=== PATIENT | male | born 1995 | race African-American/Black ===

== ENCOUNTER 2016-10-13 14:32 | Emergency (ER) | payer OTHER ==
[~2016-10-13] VITALS: Ht 165.1 cm; Wt 83.9 kg
[2016-10-13 14:43] VITALS: BP 126/74
--- NOTE | 2016-10-13 15:13 | PHYS DOC ---
Past Medical History Past Medical History: Other Additional Past Medical Histor: [facility] Past Surgical History: Other Additional Past Surgical Histo: left knee surgery, abd explor. wash out Alcohol Use: Occasionally Drug Use: None Adult General Chief Complaint Chief Complaint: ABSCESS HPI HPI Patient is a 21 year old male presents to the emergency department states that he has had a cyst on his right buttocks for the last few days. He states his been very hard and tender. He denies any drainage or discharge coming from the site. He states his last tetanus immunization was approximately one year ago. He denies fever, chills or any nausea vomiting. Review of Systems Review of Systems Constitutional: Denies fever or chills [] Eyes: Denies change in visual acuity, redness, or eye pain [] HENT: Denies nasal congestion or sore throat [] Respiratory: Denies cough or shortness of breath [] Cardiovascular: No additional information not addressed in HPI [] GI: Denies abdominal pain, nausea, vomiting, bloody stools or diarrhea [] : Denies dysuria or hematuria [] Musculoskeletal: Denies back pain or joint pain [] Integument: Denies rash or skin lesions. Complaint of abscess right buttocks Neurologic: Denies headache, focal weakness or sensory changes [] Endocrine: Denies polyuria or polydipsia [] Current Medications Current Medications Current Medications Medications (Trade) Dose Ordered Sig/Flor Start Time Stop Time Status Last Admin Dose Admin Lidocaine/Sodium Bicarbonate (Buffered Lidocaine 1%) 20 ml 1X ONCE 10/13/16 15:15 10/13/16 15:16 DC 10/13/16 15:17 20 ML Allergies Allergies Allergies Coded Allergies Type Severity Reaction Last Updated Verified No Known Drug Allergies 03/29/13 No Physical Exam Physical Exam Constitutional: Well developed, well nourished, no acute distress, non-toxic appearance. [] HENT: Normocephalic, atraumatic, bilateral external ears normal, oropharynx moist, no oral exudates, nose normal. [] Eyes: PERRLA, EOMI, conjunctiva normal, no discharge. [] Neck: Normal range of motion, no tenderness, supple, no stridor. [] Cardiovascular:Heart rate regular rhythm Lungs & Thorax: No respiratory distress noted Skin: Warm, dry, no erythema, no rash. Patient with a pustular area noted on the right buttocks area Back: No tenderness Extremities: No tenderness, no cyanosis, no clubbing, ROM intact, no edema. [] Neurologic: Alert and oriented X 3, normal motor function, normal sensory function, no focal deficits noted. [] Psychologic: Affect normal, judgement normal, mood normal. [] Current Patient Data Vital Signs Vital Signs Date Time Temp Pulse Resp B/P (MAP) Pulse Ox O2 Delivery O2 Flow Rate FiO2 10/13/16 14:43 98.2 77 18 96 Room Air 98.2 EKG EKG [] Radiology/Procedures Radiology/Procedures [] Course & Med Decision Making Course & Med Decision Making Pertinent Labs and Imaging studies reviewed. (See chart for details) Right buttocks site was cleaned with Betadine. 18-gauge needle was used to idalia open the site with thick yellow discharge noted. Band-Aid was placed over the site. Patient reports placed on Bactrim 1 tablet twice day for the next 10 days recommended warm moist soaks to the area times a day for 20 minutes at a time. Patient was recommended to follow-up the primary care physician or return back to emergency department in the next 3-5 days. Since symptoms to return to emergency department been provided. Patient agrees with discharge instructions treatment regimen and follow-up recommendations. Dragon Disclaimer Dragon Disclaimer This electronic medical record was generated, in whole or in part, using a voice recognition dictation system. Departure Departure Impression: Primary Impression: Abscess Disposition: 01 HOME, SELF-CARE Condition: STABLE Referrals: NO PCP (PCP) Patient Instructions: Abscess, [id number] Additional Instructions: Activity as tolerated Medication as prescribed Tylenol or Ibuprofen for pain Warm moist packs to the buttock 5 times a day for 20 minutes at a time Followup with primary care provider in 3-5 days Return to emergency department as needed for signs and symptoms that become worse. Scripts Sulfamethoxazole/Trimethoprim (BACTRIM DS TABLET) 1 Each Tablet 1 TAB PO BID, #20 TAB Prov: NIECY DRAKE APRN 10/13/16 NIECY DRAKE APRN Oct 13, 2016 15:13
[2016-10-13] MEDS ORDERED: LIDOCAINE 1% / SOD BICARB 8.4% 20 ML VIAL. IJ ONE (15:15)
[2016-10-13] MEDS ORDERED: SULF1TAB24 PO (15:34)
== END 2016-10-13 15:46 | disposition home or self-care (01) ==
LOC: ER 14:32
DX: L02.31 Cutaneous abscess of buttock (principal)
CPT/HCPCS: 10060; 99283-25

== ENCOUNTER 2019-03-13 07:34 | Emergency (ER) | payer OTHER ==
[~2019-03-13] VITALS: Ht 165.1 cm; Wt 79.4 kg
[~2019-03-13 07:34] MED LIST: SULF1TAB24 PO
[2019-03-13 07:40] VITALS: BP 108/60
[2019-03-13] MEDS ORDERED: SULF1TAB24 PO (08:09)
[2019-03-13] MEDS ORDERED: CEPH-264 PO (08:09)
[2019-03-13] MEDS ORDERED: HYDR-3164 PO (08:09)
--- NOTE | 2019-03-13 08:09 | PHYS DOC ---
Past Medical History Past Medical History: Other Additional Past Medical Histor: [facility] Past Surgical History: Other Additional Past Surgical Histo: left knee surgery, abd explor. wash out Alcohol Use: Occasionally Drug Use: None Adult General Chief Complaint Chief Complaint: ABSCESS HPI HPI Patient is a 23 year old male who presents with complaining of abscess. Patient states she had painful area in lower back since yesterday and had the same history of years ago with diagnosis of pilonidal abscess. Patient denies fever and chills, nausea and vomiting, constipation and diarrhea. Review of Systems Review of Systems Constitutional: Denies fever or chills [] Eyes: Denies change in visual acuity, redness, or eye pain [] HENT: Denies nasal congestion or sore throat [] Respiratory: Denies cough or shortness of breath [] Cardiovascular: No additional information not addressed in HPI [] GI: Denies abdominal pain, nausea, vomiting, bloody stools or diarrhea [] : Denies dysuria or hematuria [] Musculoskeletal: Denies back pain or joint pain [] Integument: Denies rash, reports skin lesions [] Neurologic: Denies headache, focal weakness or sensory changes [] Endocrine: Denies polyuria or polydipsia [] All other systems were reviewed and found to be within normal limits, except as documented in this note. Allergies Allergies Allergies Coded Allergies Type Severity Reaction Last Updated Verified No Known Drug Allergies 03/29/13 No Physical Exam Physical Exam Constitutional: Well developed, well nourished, mild distress, non-toxic appearance. [] HENT: Normocephalic, atraumatic. Eyes: PERRLA, EOMI, conjunctiva normal, no discharge. [] Neck: Normal range of motion, no tenderness, supple, no stridor. [] Cardiovascular:Heart rate regular rhythm, no murmur [] Lungs & Thorax: Bilateral breath sounds clear to auscultation [] Abdomen: Bowel sounds normal, soft, no tenderness, no masses, no pulsatile masses. [] Skin: Warm, dry, no erythema, no rash. Small area of erythema without abscess in the sacral area Back: No tenderness, no CVA tenderness. [] Extremities: No tenderness, no cyanosis, no clubbing, ROM intact, no edema. [] Neurologic: Alert and oriented X 3, no focal deficits noted. [] Psychologic: Affect normal, judgement normal, mood normal. [] Current Patient Data Vital Signs Vital Signs Date Time Temp Pulse Resp B/P (MAP) Pulse Ox O2 Delivery O2 Flow Rate FiO2 03/13/19 07:40 98.4 86 18 108/60 (76) 98 Room Air 98.4 EKG EKG [] Radiology/Procedures Radiology/Procedures [] Course & Med Decision Making Course & Med Decision Making Evaluation of patient in ER showed 23-year-old male patient presented to ER with cellulitis of pilonidal cyst. Plan of treatment was explained the patient and was advised to return to ER if not getting better in 48 hours. Dragon Disclaimer Dragon Disclaimer This electronic medical record was generated, in whole or in part, using a voice recognition dictation system. Departure Departure Impression: Primary Impression: Infected pilonidal cyst Disposition: HOME, SELF-CARE (at 0805) Condition: STABLE Referrals: NO PCP (PCP) BILLY ESCAMILLA MD Patient Instructions: Pilonidal Cyst Additional Instructions: Drink plenty of liquids Follow-up with your primary care physician in days Return to ER if not getting better in 48 hours Apply moist heat pad on the affected area Follow-up with surgeon for definitive treatment of pilonidal cyst Scripts Hydrocodone/Apap 5-325 (NORCO 5-325 TABLET) 1 Each Tablet 1 TAB PO PRN Q6HRS PRN for PAIN, #10 TAB 0 Refills Prov: JEFFERY HERRERA MD 03/13/19 Cephalexin (KEFLEX) 500 Mg Capsule 2 CAP PO Q12HR, #28 CAP Prov: JEFFERY HERRERA MD 03/13/19 Sulfamethoxazole/Trimethoprim (BACTRIM DS TABLET) 1 Each Tablet 1 TAB PO BID for infection, #14 TAB Prov: JEFFERY HERRERA MD 03/13/19 JEFFERY HERRERA MD Mar 13, 2019 08:09
== END 2019-03-13 08:15 | disposition home or self-care (01) ==
LOC: ER 07:34
DX: L05.01 Pilonidal cyst with abscess (principal)
CPT/HCPCS: 99283

== ENCOUNTER 2020-01-17 01:34 | Emergency (ER) | payer OTHER ==
[~2020-01-17] VITALS: Ht 175.3 cm; Wt 88.6 kg
[~2020-01-17 01:34] MED LIST changes: +CEPH-264 PO; +HYDR-3164 PO
[2020-01-17] MEDS ORDERED: HALOPERIDOL LACTATE 5 MG/ML VIAL. ONE (01:47)
[2020-01-17] MEDS ORDERED: MIDAZOLAM HCL/PF 5 MG/5 ML VIAL. ONE (01:54)
[2020-01-17] MEDS ORDERED: MIDAZOLAM HCL/PF 5 MG/5 ML VIAL. IM ONE ×2 (02:30)
[2020-01-17] MEDS ORDERED: HALOPERIDOL LACTATE 5 MG/ML VIAL. IVP ONE (02:30)
[2020-01-17] MEDS ORDERED: IV NORMAL SALINE 1000ML BAG 1,000 ML IV ONE ×2 (02:30)
[2020-01-17 02:39] LABS: BASO # 0.1 x10^3/uL (0.0-0.2); BASO % 1 % (0-3); EOS # 0.1 x10^3/uL (0.0-0.7); EOS % 1 % (0-3); HEMATOCRIT 39.3 % (39.0-53.0); HEMOGLOBIN 13.7 g/dL (13.0-17.5); LYMPH # 2.3 x10^3/uL (1.0-4.8); LYMPH % 22 % (24-48); MEAN CORPUSCULAR HEMOGLOBIN 29 pg (25-35); MEAN CORPUSCULAR HGB CONC 35 g/dL (31-37); MEAN CORPUSCULAR VOLUME 84 fL (79-100); MONO # 0.6 x10^3/uL (0.0-1.1); MONO % 6 % (0-9); NEUT # 7.3 x10^3/uL (1.8-7.7); NEUT % 70 % (31-73); PLATELET COUNT 186 x10^3/uL (140-400); RED BLOOD COUNT 4.66 x10^6/uL (4.30-5.70); RED CELL DISTRIBUTION WIDTH 12.7 % (11.5-14.5); WHITE BLOOD COUNT 10.5 x10^3/uL (4.0-11.0)
--- NOTE | 2020-01-17 03:02 | RAD ---
CT head without contrast. CT cervical spine without contrast. PQRS statement: CT scans at this facility use dose reduction including either automated exposure control, iterative reconstructions, and /or weight based radiation dosing via mA and kV modification when appropriate to reduce radiation dose to as low as reasonably achievable. HISTORY: Altered mental status. CT head findings: No intracranial hemorrhage, mass, hydrocephalus, extra-axial fluid collections or infarction. Fluid opacities left sphenoid sinus. Orbits, mastoids and bones are unremarkable. IMPRESSION: No acute intracranial CT abnormality. Left sphenoid sinus fluid likely sinusitis. CT cervical spine findings: Craniocervical junction intact. Cervical vertebral body height and alignment intact. No fracture of the cervical spine. Lung apices and paraspinal tissues are unremarkable. IMPRESSION: No acute osseous injury of the cervical spine. Electronically signed by: Jamison Schultz MD (01/17/2020 3:00 AM) [facility]
[2020-01-17 03:10] LABS: ALBUMIN 3.9 g/dL (3.4-5.0); ALBUMIN/GLOBULIN RATIO 1.4 (1.0-1.7); CALCIUM 8.5 mg/dL (8.5-10.1); CREATININE 1.3 mg/dL (0.7-1.3); GFR 80.7; TOTAL BILIRUBIN 0.3 mg/dL (0.2-1.0); TOTAL PROTEIN 6.6 g/dL (6.4-8.2)
[2020-01-17 03:17] LABS: POTASSIUM 2.8 mmol/L (3.5-5.1)
[2020-01-17] MEDS ORDERED: POTASSIUM CL 40MEQ IN 0.9%NACL 1,000 ML IV SCH (04:00)
--- NOTE | 2020-01-17 04:06 | PHYS DOC ---
Past Medical History Past Medical History: Other Additional Past Medical Histor: [facility] (YESY DE LA O DO) Past Surgical History: Other Additional Past Surgical Histo: left knee surgery, abd explor. 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 (YESY DE LA O DO) Review of Systems: Review of Systems: Review of systems unable to be obtained due to mental status (YESY DE LA O DO) Heart Score: Risk Factors: Risk Factors: DM, Current or recent (<one month) smoker, HTN, HLP, family history of CAD, obesity. Risk Scores: Score 0 - 3: 2.5% MACE over next 6 weeks - Discharge Home Score 4 - 6: 20.3% MACE over next 6 weeks - Admit for Clinical Observation Score 7 - 10: 72.7% MACE over next 6 weeks - Early Invasive Strategies (YESY DE LA O DO) Current Medications: Current Medications Medications (Trade) Dose Ordered Sig/Flor Start Time Stop Time Status Last Admin Dose Admin Haloperidol Lactate (Haldol Inj) 10 mg 1X ONCE 01/17/20 02:30 01/17/20 02:31 DC 01/17/20 02:39 5 MG Midazolam HCl (Versed) 5 mg STK-MED ONCE 01/17/20 01:54 01/17/20 01:54 DC Potassium Chloride/Sodium Chloride 1,000 ml @ 125 mls/hr Q8H 01/17/20 04:00 01/17/20 11:59 Sodium Chloride 1,000 ml @ 1,000 mls/hr 1X ONCE 01/17/20 02:30 01/17/20 03:29 DC 01/17/20 02:37 1,000 MLS/HR (YESY DE LA O DO) Allergies: Allergies: Allergies Coded Allergies Type Severity Reaction Last Updated Verified No Known Drug Allergies 03/29/13 No (YESY DE LA O DO) Physical Exam: PE: Constitutional: Nonverbal, diaphoretic, unable to verbally escalate, handcuffed HENT: oropharynx moist, no oral exudates, nose normal. [] No hemotympanum Eyes: PERRLA-3mm bl, EOMI, conjunctiva normal, no discharge. [] Mild 3 mm abrasion over right upper eyelid, some blood on distal r ear tip Neck: Normal range of motion, supple, no stridor. [] Cardiovascular:Heart rate regular rhythm, no murmur [] Lungs & Thorax: Bilateral breath sounds clear to auscultation [] Abdomen: Bowel sounds normal, soft, no tenderness, no masses, no pulsatile masses. [] Skin: Warm, dry, no erythema, no rash. [] Back: No tenderness, no CVA tenderness. [] Extremities: No tenderness, no cyanosis, no clubbing, ROM intact, no edema. [] Neurologic: normal motor function, normal sensory function, no focal deficits noted. [] Psychologic: Agitated and bizarre behavior (YESY DE LA O DO) Current Patient Data: Labs: Laboratory Tests Test 01/17/20 02:25 White Blood Count 10.5 x10^3/uL (4.0-11.0) Red Blood Count 4.66 x10^6/uL (4.30-5.70) Hemoglobin 13.7 g/dL (13.0-17.5) Hematocrit 39.3 % (39.0-53.0) Mean Corpuscular Volume 84 fL (79-100) Mean Corpuscular Hemoglobin 29 pg (25-35) Mean Corpuscular Hemoglobin Concent 35 g/dL (31-37) Red Cell Distribution Width 12.7 % (11.5-14.5) Platelet Count 186 x10^3/uL (140-400) Neutrophils (%) (Auto) 70 % (31-73) Lymphocytes (%) (Auto) 22 % (24-48) L Monocytes (%) (Auto) 6 % (0-9) Eosinophils (%) (Auto) 1 % (0-3) Basophils (%) (Auto) 1 % (0-3) Neutrophils # (Auto) 7.3 x10^3/uL (1.8-7.7) Lymphocytes # (Auto) 2.3 x10^3/uL (1.0-4.8) Monocytes # (Auto) 0.6 x10^3/uL (0.0-1.1) Eosinophils # (Auto) 0.1 x10^3/uL (0.0-0.7) Basophils # (Auto) 0.1 x10^3/uL (0.0-0.2) Sodium Level 140 mmol/L (136-145) Potassium Level 2.8 mmol/L (3.5-5.1) *L Chloride Level 102 mmol/L (98-107) Carbon Dioxide Level 26 mmol/L (21-32) Anion Gap 12 (6-14) Blood Urea Nitrogen 15 mg/dL (8-26) Creatinine 1.3 mg/dL (0.7-1.3) Estimated GFR (Cockcroft-Gault) 80.7 BUN/Creatinine Ratio 12 (6-20) Glucose Level 131 mg/dL (70-99) H Calcium Level 8.5 mg/dL (8.5-10.1) Total Bilirubin 0.3 mg/dL (0.2-1.0) Aspartate Amino Transferase (AST) 20 U/L (15-37) Alanine Aminotransferase (ALT) 16 U/L (16-63) Alkaline Phosphatase 57 U/L (46-116) Creatine Kinase 297 U/L (39-308) Total Protein 6.6 g/dL (6.4-8.2) Albumin 3.9 g/dL (3.4-5.0) Albumin/Globulin Ratio 1.4 (1.0-1.7) Ethyl Alcohol Level < 10 mg/dL (0-10) Laboratory Tests 01/17/20 02:25 Laboratory Tests 01/17/20 02:25 (YESY DE LA O DO) EKG: EKG: Sinus tachycardia at 115 bpm, no axis deviation, T wave inversion lead III, normal intervals, no ST elevations or ST depressions (EYSY DE LA O DO) Radiology/Procedures: Radiology/Procedures: IMAGING REPORT Signed PATIENT: CRYSTAL COOK ACCOUNT: [id number] : 1995 LOCATION: ER AGE: 24 SEX: M EXAM STATUS: PRE ER ORD. PHYSICIAN: YESY DE LA O DO REASON: ams PROCEDURE: CT HEAD AND CERVICAL SPINE WO CT head without contrast. CT cervical spine without contrast. PQRS statement: CT scans at this facility use dose reduction including either automated exposure control, iterative reconstructions, and /or weight based radiation dosing via mA and kV modification when appropriate to reduce radiation dose to as low as reasonably achievable. HISTORY: Altered mental status. CT head findings: No intracranial hemorrhage, mass, hydrocephalus, extra-axial fluid collections or infarction. Fluid opacities left sphenoid sinus. Orbits, mastoids and bones are unremarkable. IMPRESSION: No acute intracranial CT abnormality. Left sphenoid sinus fluid likely sinusitis. CT cervical spine findings: Craniocervical junction intact. Cervical vertebral body height and alignment intact. No fracture of the cervical spine. Lung apices and paraspinal tissues are unremarkable. IMPRESSION: No acute osseous injury of the cervical spine. Electronically signed by: Reyes Schultz MD (01/17/2020 3:00 AM) [facility] DICTATED and SIGNED BY: REYES SCHULTZ MD DATE: 01/17/20299 IMAGING REPORT Signed PATIENT: CRYSTAL COOK ACCOUNT: [id number] : 1995 LOCATION: ER AGE: 24 SEX: M EXAM STATUS: PRE ER ORD. PHYSICIAN: YESY DE LA O DO REASON: ams PROCEDURE: CHEST AP ONLY AP chest x-ray HISTORY: Altered mental status. FINDINGS: Heart size normal. Mediastinal silhouette is normal. No pneumothorax, pulmonary opacities or pleural effusions. Bones are unremarkable. IMPRESSION: No acute process. Electronically signed by: Reyes Schultz MD (01/17/2020 4:07 AM) [facility] DICTATED and SIGNED BY: REYES SCHULTZ MD DATE: 01/17/20406 (YESY DE LA O DO) Course & Med Decision Making: Course & Med Decision Making Pertinent Labs and Imaging studies reviewed. (See chart for details) Concern for acute agitated and delirious male, requiring medication for sedation for his safety and medical evaluation. Patient psychotic (during sedation has confucianism persecutions/thoughts and voiced to rn comments regarding "my suicide will make the world end." Also hits on female staffs members and asks for hugs) and diaphoretic on arrival. CT of the head and neck without any contrast showing possible left sphenoid sinus sinusitis but no acute abnormality. Chest x-ray with no acute abnormality. Urine drug screen positive for marijuana and benzos (benzos likely from ed administration). Patient with hypokalemia of 2.8. IV replacement started in ED. Patient now sober with medical decision-making capacity. Patient reports he has no underlying psych illness and states that had a meltdown, does admit to smoking marijuana. Denies any SI or HI has no hallucinations, has no further psychosis. Has been assessed by PAT team who agree patient is not a danger to himself or others. Will DC home with primary care and psychiatry outpatient follow-up. Patient was not seen by oncoming physician Dr. Foote. Strict ed return precautions given for SI, HI, hallucinations or psychosis. Life-threatening processes were considered but are low suspicion at this time, given history and physical exam. Pt was educated on all prescription medications and adverse effects. All patient's questions were answered and pt was stable at time of discharge. Life/limb-threatening differential includes but is not limited to, end organ damage/sepsis, head and neck injury, neurologic deficit, alcohol/drug ingestion, toxidrome, suicidal/homicidal ideations plans or attempts, psychosis or mental illness resulting in self neglect and inability to care for self. I spoken with the patient and her caregivers. I explained the patient's condition, diagnoses and treatment plan based on the information available to me at this time. I have answered the patient and her caregiver's questions and addressed any concerns. The patient and her caregivers have a good understanding of patient's diagnosis, condition and treatment plan as can be expected at this point. Vital signs have been stable. Patient's condition is stable and appropriate for discharge from the emergency department. Patient will pursue further outpatient evaluation with primary care physician or other designated or consulting physician as outlined in the discharge instructions. The patient and/or caregivers are agreeable to this plan of care and follow-up instructions have been explained in detail. The patient and/or caregivers have received these instructions in written form and have expressed an understanding of the discharge instructions. The patient and/or caregivers are aware that any significant change of condition or worsening of symptoms should prompt immediate return to this or the closest emergency department or call to 911. Critical Care: Authorized and Performed by: Yesy De La O DO Total critical care time: approximately 45 minutes Due to a high probability of clinically significant, life threatening deterioration, the patient required my highest level of preparedness to intervene emergently and I personally spent this critical care time directly and personally managing the patient. This critical care time included obtaining a history; examining the patient; pulse oximetry; ventilator management if necessary; ordering and review of studies; arranging urgent treatment with development of a management plan; evaluation of patient's response to treatment; frequent reassessment; discussion with patient/family; and, discussions with other providers. This critical care time was performed to assess and manage the high probability of imminent, life-threatening deterioration that could result in multi-organ failure. It was exclusive of separately billable procedures and treating other patients and teaching time. Please see MDM section and the rest of the note for further information on patient assessment and treatment. (YESY DE LA O DO) Course & Med Decision Making I did not participate in care of this patient. (BRIANNE FOOTE DO) Dragon Disclaimer: Dragon Disclaimer: This electronic medical record was generated, in whole or in part, using a voice recognition dictation system. (YESY DE LA O DO) Departure Departure Impression: Primary Impression: Agitation requiring sedation protocol Additional Impressions: Marijuana use Hypokalemia Disposition: 01 DC HOME SELF CARE/HOMELESS Condition: STABLE Referrals: NO PCP (PCP) FOLLOW UP WITH FAMILY MEDICINE: Family Medicine Address: [address] [address] Patient Instructions: Marijuana Abuse-Brief, Sedation, Moderate, Adult Additional Instructions: FOLLOW UP WITH PSYCHIATRY: Dr. Darnell García Psychiatry Specialist [address], [place] [address] EMERGENCY DEPARTMENT GENERAL DISCHARGE INSTRUCTIONS Thank you for coming to [facility] Emergency Department (ED) today and trusting us with you care. We trust that you had a positive experience in our Emergency Department. If you wish to speak to the department management, you may call the Director at [phone]. YOUR FOLLOW UP INSTRUCTIONS ARE FOLLOWS: 1. Do you have a private Doctor? If you do not have a private doctor, please ask for a resource list of physicians or clinics that may be able to assist you with follow up care. 2. The Emergency Physicain has interpreted your x-rays. The X-Ray specialist will also review them. If there is a change in the findings, you will be notified in 48 hours when at all possible. 3. A lab test or culture has been done, your results will be reviewed and you will be notified if you need a change in treatment. ADDITIONAL INSTRUCTIONS AND INFORMATION: 1. Your care today has been supervised by a physician who is specially trained in emergency care. Many problems require more than one evaluation for a complete diagnosis and treatment. We recommend that you schedule your follow up appointment as recommended to ensure complete treatment of you illness or injury. If you are unable to obtain follow up care and continue to have a problem, or if your condition worsens, we recommend that you return to the ED. 2. We are not able to safely determine your condition over the phone nor are we able to give sound medical advice over the phone. For these safety reasons, if you call for medical advice we will ask you to come to the ED for further evaluation. 3. If you have any questions regarding these discharge instructions please call the ED at [phone]. SAFETY INFORMATION: In the interest of safety, wellness, and injury prevention; we encourage you to wear your sealbelt, if you smoke; quite smoking, and we encourage family to use a protective helmet for bicycling and other sporting events that present an increased risk for head injury. IF YOUR SYMPTOMS WORSEN OR NEW SYMPTOMS DEVELOP, OR YOU HAVE CONCERNS ABOUT YOUR CONDITION; OR IF YOUR CONDITION WORSENS WHILE YOU ARE WAITING FOR YOUR FOLLOW UP APPOINTMENT; EITHER CONTACT YOUR PRIMARY CARE DOCTOR, THE PHYSICIAN WHOSE NAME AND NUMBER YOU WERE GIVEN, OR RETURN TO THE ED IMMEDIATELY. YESY DE LA O DO Jan 17, 2020 04:06 BRIANNE FOOTE DO Jan 17, 2020 06:06
--- NOTE | 2020-01-17 04:10 | RAD ---
AP chest x-ray HISTORY: Altered mental status. FINDINGS: Heart size normal. Mediastinal silhouette is normal. No pneumothorax, pulmonary opacities or pleural effusions. Bones are unremarkable. IMPRESSION: No acute process. Electronically signed by: Jamison Schultz MD (01/17/2020 4:07 AM) [facility]
[2020-01-17 04:24] LABS: BARBITURATES NEG (NEG); BENZODIAZEPINES POS (NEG); CANNABINOIDS POS (NEG); COCAINE NEG (NEG); METHADONE NEG (NEG); OPIATES NEG (NEG); PHENCYCLIDINE NEG (NEG)
[2020-01-17 04:26] LABS: AMPHETAMINE/METHAMPHETAMINE NEG (NEG)
[2020-01-17 05:40] VITALS: BP 147/91
[2020-01-17] MEDS ORDERED: MIDAZOLAM HCL/PF 5 MG/5 ML VIAL. IV ONE ×2 (06:30)
--- NOTE | 2020-01-17 19:52 | EKG ---
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
== END 2020-01-17 07:21 | disposition home or self-care (01) ==
LOC: ER 01:34
DX: S00.211A Abrasion of right eyelid and periocular area, initial encounter (principal); R45.1 Restlessness and agitation; E87.6 Hypokalemia; F12.90 Cannabis use, unspecified, uncomplicated; F17.200 Nicotine dependence, unspecified, uncomplicated; Z98.890 Other specified postprocedural states; Y08.89XA Assault by other specified means, initial encounter; Y93.89 Activity, other specified; Y92.89 Other specified places as the place of occurrence of the external cause; Y99.8 Other external cause status
CPT/HCPCS: 36415; 70450; 71045; 72125; 80053; 80307; 82550; 85025; 93005; 96361; 96365; 96375; 96376; 99285; G0480; J1630; J2250; J3480; J7030

== ENCOUNTER 2020-01-18 02:56 | Emergency (ER) | payer OTHER ==
[~2020-01-18] VITALS: Ht 167.6 cm; Wt 85.0 kg
--- NOTE | 2020-01-18 03:01 | PHYS DOC ---
Past Medical History Past Medical History: Other Additional Past Medical Histor: w Past Surgical History: Other Additional Past Surgical Histo: left knee surgery, abd explor. wash out Smoking Status: Current Every Day Smoker Alcohol Use: Occasionally Drug Use: None General Adult EDM: Chief Complaint: DRUG ABUSE HPI: HPI: Patient is a 24 year old M who presents for depression. He states that he believes he is Elijah and thinks he needs to harm himself because no one else will believe he is. He reports smoking marijuana with K[employer] yesterday and thinks some of his thoughts are due to this. He denies plan to harm himself or others. He has been under a lot of stress at work and home and came to the ED for "medications for depression". He denies auditory and visual hallucinations. Review of Systems: Review of Systems: Constitutional: Denies fever or chills Eyes: Denies redness or eye pain HENT: Denies nasal congestion or sore throat Respiratory: Denies cough or shortness of breath Cardiovascular: Denies chest pain or palpitations GI: Denies abdominal pain, nausea, or vomiting : Denies dysuria or hematuria Musculoskeletal: Denies back pain or joint pain Integument: Denies rash or skin lesions Neurologic: Denies headache or sensory changes Complete systems were reviewed and found to be within normal limits, except as documented in this note. Allergies: Allergies: Allergies Coded Allergies Type Severity Reaction Last Updated Verified No Known Drug Allergies 03/29/13 No Physical Exam: PE: Constitutional: Well developed, well nourished HENT: Normocephalic, atraumatic Eyes: Conjunctiva normal, no discharge Neck: Normal range of motion, no tenderness, supple Lungs & Thorax: No respiratory distress, equal chest rise and fall Abdomen: Soft, no tenderness Skin: Warm, dry, no erythema, no rash Back: No tenderness, no CVA tenderness Extremities: No tenderness, no edema Neurologic: Alert and oriented X 3, no focal deficits noted Psychologic: flat affect, judgment normal; denies suicidal ideation or homicidal ideation EKG: EKG: [] Radiology/Procedures: Radiology/Procedures: [] Course & Med Decision Making: Course & Med Decision Making 24 yo M presented to the emergency department for depressive thoughts. Patient denies suicidal ideation. Discussed outpatient psychiatric resources available to patient. Patient stable for discharge with outpatient follow-up with PCP/mental health. Mental health resources provided. Discussed plan with wilmar gaines, who acknowledges understanding and agreement. Marcelle Disclaimer: Marcelle Disclaimer: This electronic medical record was generated, in whole or in part, using a voice recognition dictation system. Departure Departure Impression: Primary Impression: Depression Qualified Codes: F32.9 - Major depressive disorder, single episode, unspecified Additional Impression: Drug abuse Disposition: 01 DC HOME SELF CARE/HOMELESS Condition: STABLE Referrals: NO PCP (PCP) Patient Instructions: Alcohol and Drug Addiction, Finding Treatment, Depression, Adult, [id number], Drug Abuse, FAQs, Marijuana Abuse and Chemical Dependency PHUC APONTE DO Jan 18, 2020 03:01
[2020-01-18 03:37] VITALS: BP 134/65
[2020-01-18] MEDS ORDERED: LORazepam 0.5 MG TABLET PO ONE (04:00)
== END 2020-01-18 04:00 | disposition home or self-care (01) ==
LOC: ER 02:56
DX: F32.9 Major depressive disorder, single episode, unspecified (principal); F17.200 Nicotine dependence, unspecified, uncomplicated; F12.10 Cannabis abuse, uncomplicated; Z98.890 Other specified postprocedural states
CPT/HCPCS: 99283